=== PATIENT | female | born 1990 | race Caucasian/White ===

== ENCOUNTER 2019-04-08 09:40 | Inpatient (IN) ==
[2019-04-08] MEDS ORDERED: BUTORPHANOL 1 MG/ML VIAL IV PRN (10:53)
[2019-04-08 11:13] LABS: Apearance,Urine Slightly Hazy (Clear); Bacteria,Urine Occasional /HPF (Few); Bilirubin,Urine Negative (Negative); Blood, Urine Large mg/dL (Negative); Glucose,Urine (UA) Negative (Negative); Ketones,Urine Negative (Negative); Mucus,Urine Occasional /LPF (Occasional); Nitrite,Urine Negative (Negative); Protein,Urine Negative; RBC,Urine 19 /HPF (0-4); Squamous Epithelial Cell,Urine Few /HPF (0-10); Urine Color Yellow (Yellow); Urine Specific Gravity 1.006 (1.001-1.035); Urine Urobilinogen < 2.0 EU/DL (0.2-1.0); WBC,Urine 2 /HPF (0-6)
[2019-04-08 11:21] LABS: Basophils # 0.1 10*3/uL (0.0-0.2); Basophils % 0.3 % (0.0-0.8); Eosinophils # 0.1 10*3/uL (0.0-0.87); Eosinophils % 0.5 % (0.00-10.9); Hematocrit 33.7 VOL% (35.7-47.0); Hemoglobin 11.6 GM/DL (12.0-16.0); Immature Granulocytes % 0.7 %; Immature Granulocytes Absolute 0.11 #; Lymphocytes # 1.9 10*3/uL (1.4-4.0); Lymphocytes % 12.6 % (21.3-54.2); Mean Corpuscular HGB Conc 34.4 GM/DL (32-36); Mean Corpuscular Volume 92.8 FL (87-102); Mean Platelet Volume 11.2 FL (9.6-12.0); Monocytes % 8.4 % (1.7-12.7); Neutrophils % 77.5 % (38.7-73.9); Platelet Count 146 T/CUMM (130-400); Red Blood Count 3.63 MC/CUMM (3.8-5.5); Red Cell Distribution Width 13.8 % (9.3-17.3); White Blood Count 14.7 T/CUMM (4-12)
[2019-04-08] MEDS: LACTATED RINGERS 1,000 ML IV SCH ×2 (11:21→16:15)
[2019-04-08] MEDS: BETAMETH SODIUM PHOS/ACETATE 30 MG/5 ML VIAL IM SCH (11:22)
[2019-04-08 11:42] LABS: Albumin 2.6 G/DL (3.4-5.0); Bilirubin,Total 0.4 MG/DL (0.2-1.0); Calcium 8.4 MG/DL (8.5-10.1); Osmolality,Calculated 279.1 MOS/KG (273-304); Total Protein 6.2 G/DL (6.4-8.3)
[2019-04-08] MEDS ORDERED: MEPERIDINE 25 MG/1 ML VIAL IV ONE (13:47)
[2019-04-08] MEDS ORDERED: ONDANSETRON 4 MG/2 ML VIAL ONE (16:01)
[2019-04-08] MEDS ORDERED: MORPHINE 10 MG/10 ML VIAL ONE (16:01)
[2019-04-08] MEDS ORDERED: PHENYLEPHRINE 1 MG/10 ML SYRINGE IV ONE (16:01)
[2019-04-08] MEDS ORDERED: fentaNYL 100 MCG/2 ML VIAL ONE (16:01)
[2019-04-08] MEDS ORDERED: BUPIVACAINE SPINAL 0.75% 2 ML AMP SPINAL ONE (16:01)
[2019-04-08] MEDS ORDERED: FAMOTIDINE 20 MG/2 ML VIAL IV ONE (16:10)
[2019-04-08] MEDS ORDERED: ONDANSETRON 4 MG/2 ML VIAL IV PRN ×2 (16:10→18:12)
[2019-04-08] MEDS ORDERED: CITRIC ACID/SODIUM CITRATE 30 ML UDCUP PO ONE (16:10)
[2019-04-08] MEDS ORDERED: CLINDAMYCIN INJ 900 MG in PREMIX 1 EACH IV ONE (16:13)
[2019-04-08] MEDS ORDERED: OXYTOCIN/LR 20 UNIT/1,000 ML BAG IV ONE ×3 (16:23→18:12)
[2019-04-08] MEDS ORDERED: miSOPROStoL 200 MCG TABLET ONE (16:24)
[2019-04-08] MEDS ORDERED: METHYLERGONOVINE 0.2 MG/1 ML AMP ONE (16:25)
[2019-04-08] MEDS ORDERED: TRANEXAMIC ACID 1,000 MG/10 ML VIAL ONE (16:25)
[2019-04-08] MEDS ORDERED: CARBOPROST TROMETHAMINE 250 MCG/ML AMP IM ONE (16:25)
[2019-04-08] MEDS ORDERED: ACETAMINOPHEN 325 MG TABLET PO PRN (18:12)
[2019-04-08] MEDS ORDERED: RHO(D) IMMUNE GLOBULIN 300 MCG SYRINGE IM ONE (18:12)
[2019-04-08] MEDS ORDERED: ceFAZolin 1,000 MG in SYRINGE 1 EACH IV SCH (18:30)
[2019-04-08] MEDS ORDERED: LACTATED RINGERS 1,000 ML IV SCH (18:30)
[2019-04-09] MEDS ORDERED: CLINDAMYCIN INJ 900 MG in PREMIX 1 EACH IV ONE ×2 (01:30→10:00)
[2019-04-09] MEDS: LACTATED RINGERS 1,000 ML IV SCH (02:48)
[2019-04-09 04:40] LABS: Basophils # 0.1 10*3/uL (0.0-0.2); Basophils % 0.3 % (0.0-0.8); Hematocrit 32.5 VOL% (35.7-47.0); Hemoglobin 11.1 GM/DL (12.0-16.0); Immature Granulocytes % 1.4 %; Immature Granulocytes Absolute 0.34 #; Lymphocytes # 1.5 10*3/uL (1.4-4.0); Lymphocytes % 6.4 % (21.3-54.2); Mean Corpuscular HGB Conc 34.2 GM/DL (32-36); Mean Corpuscular Volume 93.1 FL (87-102); Mean Platelet Volume 11.5 FL (9.6-12.0); Monocytes % 6.2 % (1.7-12.7); Neutrophils % 85.7 % (38.7-73.9); Platelet Count 177 T/CUMM (130-400); Red Blood Count 3.49 MC/CUMM (3.8-5.5); Red Cell Distribution Width 13.6 % (9.3-17.3); White Blood Count 23.7 T/CUMM (4-12)
[2019-04-09] MEDS: BETAMETH SODIUM PHOS/ACETATE 30 MG/5 ML VIAL IM SCH (05:34)
[2019-04-09 05:53] LABS: Band Neutrophils 1 % (0-10); Lymphocytes 7 % (20-55); Segmented Neutrophils 87 % (50-85); Total Cells Counted 100
[2019-04-09 05:54] LABS: Anisocytosis Slight; Microcytosis Slight
[2019-04-09 05:55] LABS: Platelet Estimate Normal; Polychromasia Slight
[2019-04-09] MEDS: IBUPROFEN 800 MG TABLET PO PRN ×3 (06:49→21:38)
[2019-04-09] MEDS: oxyCODONE/ACETAMINOPHEN 5-325 MG TABLET PO PRN ×3 (06:50→17:45)
[2019-04-09] MEDS: MULTIVITAMIN (PRENATAL) TABLET PO SCH (09:03)
[2019-04-09] MEDS: SIMETHICONE CHEW 80 MG TABLET PO PRN ×2 (09:03→17:46)
[2019-04-09] MEDS: MAGNESIUM HYDROXIDE SUSP 30 ML UDCUP PO PRN ×2 (09:03→21:38)
[2019-04-09] MEDS: DOCUSATE SODIUM 100 MG CAPSULE PO SCH ×2 (09:03→21:39)
[2019-04-10] MEDS: MAGNESIUM HYDROXIDE SUSP 30 ML UDCUP PO PRN ×2 (09:25→22:01)
[2019-04-10] MEDS: DOCUSATE SODIUM 100 MG CAPSULE PO SCH ×3 (09:25→22:01)
[2019-04-10] MEDS: SIMETHICONE CHEW 80 MG TABLET PO PRN (09:26)
[2019-04-10] MEDS: MULTIVITAMIN (PRENATAL) TABLET PO SCH (09:26)
[2019-04-10] MEDS: IBUPROFEN 800 MG TABLET PO PRN ×2 (13:58→22:01)
[2019-04-10] MEDS ORDERED: oxyCODONE/ACETAMINOPHEN 5-325 MG TABLET PO PRN (15:52)
[2019-04-10] MEDS: oxyCODONE/ACETAMINOPHEN 5-325 MG TABLET PO PRN ×2 (16:00→22:01)
[2019-04-11] MEDS: oxyCODONE/ACETAMINOPHEN 5-325 MG TABLET PO PRN ×2 (07:50→10:15)
[2019-04-11] MEDS: SIMETHICONE CHEW 80 MG TABLET PO PRN (07:55)
[2019-04-11 08:28] VITALS: BP 131/80
[2019-04-11] MEDS: MULTIVITAMIN (PRENATAL) TABLET PO SCH (10:06)
[2019-04-11] MEDS: DOCUSATE SODIUM 100 MG CAPSULE PO SCH (10:06)
== END 2019-04-11 16:10 | disposition home or self-care (01) | DRG 788 ==
LOC: N.LDOUT 09:40 → N.LD 09:49 → N.OB 21:11
PROVIDERS: ADMIT Obstetrics & Gynecology; ATTEND Obstetrics & Gynecology
PROC: LDCSECT (ICD-10-PCS; 2019-04-08 16:45)